=== PATIENT | male | born 1970 | race Caucasian/White ===

== ENCOUNTER 2021-08-31 00:34 | Day surgery (SDC) | payer OTHER, SELFPAY ==
[2021-08-16 12:42] VITALS: BMI 32.5
--- NOTE | 2021-08-30 09:16 | P.PNAN_ITS ---
Anes - Initial Pre Proc Eval Procedure: Operation Date: 08/31/21 07:30 Proposed Procedures p Screening Colonoscopy - Lionel Quiroz MD Date/Time: 08/30/21 09:16 Surgeon: Lionel Quiroz MD Pre Op Diagnosis: neoplasm screening Patient Data Age: 50 Gender: M Height: 1.75 m Weight: 100 kg Allergies Allergy/AdvReac Type Severity Reaction Status Date / Time lisinopril AdvReac Mild Cough Verified 08/31/21 06:17 Home Medications Medication Instructions Recorded Confirmed Type metoprolol succinate 25 mg 25 mg PO DAILY #30 tablet 05/04/21 08/16/21 Rx tablet,extended release 24 hr atorvastatin 40 mg tablet 40 mg PO DAILY #90 tablet 05/07/21 08/16/21 Rx omeprazole 40 mg capsule,delayed 40 mg PO DAILY #90 cap 05/07/21 08/16/21 Rx release losartan 100 mg tablet 100 mg PO DAILY #90 tablet 06/25/21 08/16/21 Rx Patient hx anesthesia problems: none Family hx anesthesia problems: none Results Review: All pre-operative results and documents have been reviewed as part of the pre-operative evaluation. [facility] Past Medical History Medical History (Updated 08/30/21 @ 09:17 by Teja Acosta DO) ADD (attention deficit disorder) BMI 31.0-31.9,adult GERD (gastroesophageal reflux disease) Hypertension Mixed hyperlipidemia PVC (premature ventricular contraction) Family History Family History Mother Family history of obesity Family history of diabetes mellitus in first degree relative Hypertension Family history of type 2 diabetes mellitus Other Family history of congenital heart disease Family history of dementia Family history of malignant neoplasm Social History Social History Second hand tobacco smoke exposure: No Alcohol intake: current Drinks per week: 3 Substance use: never Substance use type: does not use Living arrangements: with family Additional living arrangements comments: 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 Gender identity (if verbalized by the patient): Female Sexual Orientation (if Verbalized by the Patient): Straight or Heterosexual Spiritual care concerns: No Agree to blood products: Yes Anes - Eval Final PreProcedure Day of Procedure 08/30/21 09:16 Patient weight: obese Heart: regular rate and rhythm Lungs: clear to auscultation and normal air movement Airway: Mallampati scale class II Neurological: alert and oriented Last oral intake: >/= 8 hours ASA classification: III Emergent: no Anesthetic plan: proceed Anesthesia type and monitoring: general GIVS and standard monitoring Results Review: All pre-operative results and documents have been reviewed as part of the pre-operative evaluation. Informed Consent: The patient's anesthetic plan and its attendant risks and benefits were discussed with the patient/family/POA. Questions were solicited and answers provided to the satisfaction of the patient/family/POA.
--- NOTE | 2021-08-30 11:45 | PM.HPGS ---
History of Present Illness History of Present Illness Consent: Risks, benefits, and alternatives have been discussed and questions answered. Patient agrees to proceed with procedure. Chief complaint: neoplasm screening Narrative: Jey Joshua is a 50 year old male Referred for colon cancer screening. This is his 1st colonoscopy Review of Systems Review of Systems: All systems reviewed & are unremarkable except as noted in HPI and below PMFSH Past Medical History Medical History ADD (attention deficit disorder) BMI 31.0-31.9,adult GERD (gastroesophageal reflux disease) Hypertension Mixed hyperlipidemia PVC (premature ventricular contraction) Family History Family History Mother Family history of obesity Family history of diabetes mellitus in first degree relative Hypertension Family history of type 2 diabetes mellitus Other Family history of congenital heart disease Family history of dementia Family history of malignant neoplasm Social History Social History Second hand tobacco smoke exposure: No Alcohol intake: current Drinks per week: 3 Substance use: never Substance use type: does not use Living arrangements: with family Additional living arrangements comments: 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 Gender identity (if verbalized by the patient): Female Sexual Orientation (if Verbalized by the Patient): Straight or Heterosexual Spiritual care concerns: No Agree to blood products: Yes Meds Home Medications and Allergies Home Medications Medication Instructions Recorded Confirmed Type metoprolol succinate 25 mg 25 mg PO DAILY #30 tablet 05/04/21 08/16/21 Rx tablet,extended release 24 hr atorvastatin 40 mg tablet 40 mg PO DAILY #90 tablet 05/07/21 08/16/21 Rx omeprazole 40 mg capsule,delayed 40 mg PO DAILY #90 cap 05/07/21 08/16/21 Rx release losartan 100 mg tablet 100 mg PO DAILY #90 tablet 06/25/21 08/16/21 Rx Allergies Allergy/AdvReac Type Severity Reaction Status Date / Time lisinopril AdvReac Mild Cough Verified 08/31/21 06:17 Exam Const: General: alert Orientation/consciousness: patient oriented x3 Resp: Auscultation: clear to auscultation bilaterally Cardio: Rhythm: regular rhythm GI: GI Palp: Yes Soft to palpation and No Tenderness to palpation present (GI) Neuro: General: patient oriented x3 Assessment and Plan Assessment and plan (1) Screening for colon cancer: Code(s): Z12.11 - Encounter for screening for malignant neoplasm of colon Status: Acute Assessment and Plan: Colonoscopy with possible biopsy or polypectomy or cautery or injection of substances.
[2021-08-31 06:18] VITALS: BP 137/93; PULSE 86; RESP 16; TEMP 36.2; O2SAT 97
[2021-08-31] MEDS: LACTATED RINGERS 1,000 ML 150 ML IV CONT (06:25)
[2021-08-31 07:48] VITALS: BP 114/82; PULSE 78; RESP 15; O2SAT 96
[2021-08-31 07:58] VITALS: BP 148/84; PULSE 71; RESP 20; O2SAT 97
[2021-08-31 08:08] VITALS: BP 150/87; PULSE 64; RESP 14; O2SAT 98
== END 2021-08-31 08:17 | disposition home or self-care (01) ==
PROVIDERS: PCP Family Medicine; Visit Provider Internal Medicine Gastroenterology
PROC: 0DJD8ZZ Inspection of Lower Intestinal Tract, Via Natural or Artificial Opening Endoscopic (ICD-10-PCS; CPT 45378; principal; 2021-08-31 07:30)
DX: Z12.11 Encounter for screening for malignant neoplasm of colon (principal); K57.30 Diverticulosis of large intestine without perforation or abscess without bleeding; K63.5 Polyp of colon; K62.1 Rectal polyp; F98.8 Other specified behavioral and emotional disorders with onset usually occurring in childhood and adolescence; K21.9 Gastro-esophageal reflux disease without esophagitis; I10 Essential (primary) hypertension; E78.2 Mixed hyperlipidemia; I49.3 Ventricular premature depolarization; E66.9 Obesity, unspecified; Z68.33 Body mass index [BMI] 33.0-33.9, adult
CPT/HCPCS: 45385; 88305; J2704; J7120

== ENCOUNTER 2022-01-16 07:03 | Emergency (ER) | payer OTHER, SELFPAY ==
--- NOTE | ~2022-01-16 | XR_ITS ---
XR tibia fibula RT 2V, XR ankle RT min 3V 01/16/2022 07:23 Indication: Right leg pain and swelling Procedure: 2 views right tibia/fibula and 4 views right ankle Comparison: No prior studies for comparison. Findings: There is anatomic alignment. No fracture, subluxation or dislocation. Ankle mortise and kne e joint intact. There are soft tissue swelling lateral to the lateral malleolus. No foreign bodies. Impression: 1: No acute fracture. Reviewed, dictated and finalized at location A. Impression: 1: No acute fracture. Impression: 1: No acute fracture.
[2022-01-16 07:09] VITALS: BP 171/114; PULSE 72; RESP 16; TEMP 36.6; O2SAT 99
--- NOTE | 2022-01-16 07:15 | ED.LOWEXIN ---
HPI - Extremity Injury (Lower) General Chief Complaint: Extremity Injury, Lower Stated Complaint: right ankle pain Time Seen by Provider: 01/16/22 07:06 History of Present Illness HPI Narrative: Patient presents emergency department from home for right ankle pain. Patient states approximately 1 hour prior to arrival he was stepping down the 2 steps to go from his house to his garage when he missed a step rolling his right ankle he states since that time he had pain in the right lateral ankle with swelling. The patient has applied ice to the ankle denies taking pain medication he states the pain radiates up his right leg he denies any other trauma or injury denies any numbness or tingling Related Data Allergies Allergy/AdvReac Type Severity Reaction Status Date / Time lisinopril AdvReac Mild Cough Verified 01/16/22 07:15 Review of Systems Review of Systems: Gen.: Denies fevers or chills Musculoskeletal: See HPI Neuro: Denies numbness, tingling, weakness Skin: Denies rash Endo: Denies DM PMFSH Past Medical History Medical History ADD (attention deficit disorder) BMI 31.0-31.9,adult GERD (gastroesophageal reflux disease) Hypertension Mixed hyperlipidemia PVC (premature ventricular contraction) Family History Family History Mother Family history of obesity Family history of diabetes mellitus in first degree relative Hypertension Family history of type 2 diabetes mellitus Other Family history of congenital heart disease Family history of dementia Family history of malignant neoplasm Social History Social History Second hand tobacco smoke exposure: No Alcohol intake: current Drinks per week: 3 Substance use: never Substance use type: does not use Additional living arrangements comments: 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 Gender identity (if verbalized by the patient): Female Sexual Orientation (if Verbalized by the Patient): Straight or Heterosexual Spiritual care concerns: No Agree to blood products: Yes Exam Narrative: APPEARANCE: No acute distress, nontoxic, resting in bed Eyes: EOMI HEENT: Normocephalic, atraumatic, RESPIRATORY: No respiratory distress MUSCULOSKELETAl: Tender palpation of the right lateral ankle with swelling present no tenderness of the anterior medial ankle, no tenderness over the base of the fifth metatarsal mild tenderness over the proximal fibula dorsalis pedis pulse 2+ neurovascular intact NEURO: Awake and alert. Following commands, speech normal, no focal deficits SKIN:: Warm, dry. Normal Color no rash or lesions Course Vital Signs Vital signs: Vital Signs Temperature 98 F 01/16/22 07:09 Pulse Rate 72 01/16/22 07:09 Respiratory Rate 16 01/16/22 07:09 Blood Pressure 171/114 H 01/16/22 07:09 Pulse Oximetry 99 01/16/22 07:09 Oxygen Delivery Room Air 01/16/22 07:09 Temperature 98 F 01/16/22 07:09 Pulse Rate 72 01/16/22 07:09 Respiratory Rate 16 01/16/22 07:09 Blood Pressure 171/114 H 01/16/22 07:09 Pulse Oximetry 99 01/16/22 07:09 Oxygen Delivery Room Air 01/16/22 07:09 MDM - Extremity Injury (Lower) Imaging Data Radiologist's impression: ITS Impressions Ankle X-Ray 01/16/22 07:24 Impression: 1: No acute fracture. Tibia/Fibula X-Ray 01/16/22 07:24 Impression: 1: No acute fracture. Discharge Plan Discharge Clinical Impression: Right ankle sprain Patient Disposition: Home, Self-Care Condition: Stable Instructions: Antibiotic Form, Ankle Sprain (ED), P.R.I.C.E. Treatment (ED) Additional Instructions: Return for increasing pain numbness or tingling in extremities or any other symptoms of concern Prescriptions: New ibuprofen [IBU] 600 mg tablet 600 mg PO Q6H PRN (Re
[2022-01-16] MEDS: IBUPROFEN 600 MG TABLET PO (07:33)
[2022-01-16 08:07] VITALS: BP 150/104; PULSE 76; RESP 18; O2SAT 98
== END 2022-01-16 08:09 | disposition home or self-care (01) ==
PROVIDERS: Emergency Provider Emergency Medicine; PCP Family Medicine
DX: S93.401A Sprain of unspecified ligament of right ankle, initial encounter (principal); I10 Essential (primary) hypertension; E78.2 Mixed hyperlipidemia; K21.9 Gastro-esophageal reflux disease without esophagitis; F98.8 Other specified behavioral and emotional disorders with onset usually occurring in childhood and adolescence; X50.9XXA Other and unspecified overexertion or strenuous movements or postures, initial encounter
CPT/HCPCS: 73590; 73610; 99283; A9270

== ENCOUNTER 2024-12-31 00:11 | Day surgery (SDC) | payer OTHER, SELFPAY ==
[2024-12-22 13:21] VITALS: BMI 34.5
--- OUTSIDE RECORDS SUMMARY | 2024-12-31 00:14 | XMS_ITS | Encounter Summary ---
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 Historical Provider [facility] Final Result documented in this encounter Visit Diagnoses Not on filedocumented in this encounter Care Teams Bottom Turning Lathe Tender Relationship Specialty Start Date End Date Nilton Garcia MD PCP - General 12/13/16 documented as of this encounter
--- OUTSIDE RECORDS SUMMARY | 2024-12-31 00:14 | XMS_ITS | Referral Summary ---
Author Organization [facility] [address] Address [address] [place] [address] Care Team Providers Care Mangle Catcher Name Role Phone Nilton Garcia MD Primary Care Provider [phone] Allergies No known active allergies Medications dextroamphetami ne-amphetamine XR (ADDERALL XR) 10 mg 24 hr capsule Take 10 mg by mouth every morning. Active atorvastatin (LIPITOR) 40 mg tablet TAKE 1 TABLET BY MOUTH EVERY DAY FOR CHOLESTEROL 30 tablet 11 8 Active Active Problems Problem Noted Date Diagnosed Date Vasovagal syncope 07/15/2017 Ventricular premature beats 12/27/2016 Overview (01/10/2017): PVC's (premature ventricular contractions) Atherosclerosis of left carotid artery 7 Overview (01/10/2017): Atherosclerosis of left carotid artery Left ventricular hypertrophy 12/27/2016 Overview (01/10/2017): Left ventricular hypertrophy Left atrial enlargement 12/27/2016 Overview (01/10/2017): Left atrial enlargement Non-rheumatic tricuspid valve insufficiency 12/16 Overview (01/10/2017): Non-rheumatic tricuspid valve insufficiency Multiple-type hyperlipidemia 12/27/2016 Overview (01/10/2017): Mixed hyperlipidemia Social History Tobacco Use Types Packs/Day Years Used Date Smoking Tobacco: Never Smokeless Tobacco: Former Alcohol Use Standard Drinks/Week Comments No 0 (1 standard drink = 0.6 oz pur e alcohol) Personal Safety Answer Date Recorded Getting School Help Needed Not on file 12/11 Sex and Gender Information Value Date Recorded Sex Assigned at Not on file 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 Gender Identity Not on file Sexual Orientation Not on file Last Filed Vital Signs Vital Sign Reading Time Taken Comments Blood Pressure 112/68 07/15/2017 3:15 PM DOOR AND ARRIVAL ATTENDANT Pulse 64 07/15/2017 3:15 PM DOOR AND ARRIVAL ATTENDANT Temperature - - Respiratory Rate - - Oxygen Saturation 98% 07/15/2017 3:15 PM DOOR AND ARRIVAL ATTENDANT Inhaled Oxygen Concentration - - Weight 99.2 kg (218 lb 11.2 oz) 07/15/2017 3:15 PM DOOR AND ARRIVAL ATTENDANT Height 175.3 cm (5' 9 ) 07/15/2017 3:15 PM DOOR AND ARRIVAL ATTENDANT Body Mass Index 32.3 07/15/2017 3:15 PM DOOR AND ARRIVAL ATTENDANT Plan of Treatment Not on file Insurance [place] [employer] Care Teams Mangle Catcher Relationship Specialty Start Date End Date Nilton Garcia MD PCP - General 12/13/16
--- OUTSIDE RECORDS SUMMARY | 2024-12-31 00:14 | XMS_ITS | Clinical Summary ---
Author Organization [facility] [address] Address [address] [place] [address] Care Team Providers Care Mate Fishing Vessel Name Role Phone Nilton Garcia MD Primary Care Provider [phone] Allergies No known active allergies Medications dextroamphetami [...] Multiple-type hyperlipidemia 12/27/2016 Overview (01/10/2017): Mixed hyperlipidemia Medical History Medical History Date Comments Hx Other Medical Rhythm disturba nce Heart valve disease Valvular dis ease Hx Other Medical ADD; Comments: ELU 12/27/2016 - Family History Medical History Relation Name Comments Leukemia Father Leukemia; Cause of : Leukemia Other Mother Complications f rom non-alcoholic fatty liver disease; Cause of : Complications from non-alcoholic fatty liver disease Diabetes Other 1 Family history of Diabetes mellitus; Hyperlipidemia Other 2 Family histor y of Hyperlipidemia; Hypertension Other 3 Family history of Hypertension; Relation Name Status Comments Father (Age 71) Mother Other 1 Other 2 Other 3 Social History Tobacco Use Types Packs/Day Years Used Date Smoking Tobacco: Never Smokeless Tobacco: Former Alcohol Use Standard Drinks/Week Comments No 0 (1 standard drink = 0.6 oz pur e alcohol) Personal Safety Answer Date Recorded Getting School Help Needed Not on file 12/11 Sex and Gender Information Value Date Recorded Sex Assigned at Not on file 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 Gender Identity Not on file Sexual Orientation Not on file Obstetrics History Last Filed Vital Signs Vital Sign Reading Time Taken Comments Blood Pressure 112/68 07/15/2017 3:15 PM BLASTING MACHINE OPERATOR Pulse 64 07/15/2017 3:15 PM BLASTING MACHINE OPERATOR Temperature - - Respiratory Rate - - Oxygen Saturation 98% 07/15/2017 3:15 PM BLASTING MACHINE OPERATOR Inhaled Oxygen Concentration - - Weight 99.2 kg (218 lb 11.2 oz) 07/15/2017 3:15 PM BLASTING MACHINE OPERATOR Height 175.3 cm (5' 9 ) 07/15/2017 3:15 PM BLASTING MACHINE OPERATOR Body Mass Index 32.3 07/15/2017 3:15 PM BLASTING MACHINE OPERATOR Plan of Treatment Not on file Insurance [place] [facility] Care Teams Mate Fishing Vessel Relationship Specialty Start Date End Date Nilton Garcia MD PCP - General 12/13/16
[2024-12-31 07:10] VITALS: BP 152/99; PULSE 74; RESP 16; TEMP 35.9; O2SAT 97
[2024-12-31] MEDS: LACTATED RINGERS 1,000 ML 150 ML IV CONT (07:23)
--- NOTE | 2024-12-31 07:55 | P.HP_ITS ---
H&P: [facility] History of Present Illness Date/Time: 12/31/24 07:55 Chief Complaint: History of colon polyps Narrative: The patient has a history of colonic polyps, the last colonoscopy was 5 years ago. Review of Systems Review of Systems: All systems reviewed & are unremarkable except as noted in HPI and below PMFSH Past Medical History Medical History ADD (attention deficit disorder) Adult BMI 34.0-34.9 kg/sq m BMI 31.0-31.9,adult BMI greater than 30 GERD (gastroesophageal reflux disease) Hypertension Mixed hyperlipidemia Otitis media in diseases classified elsewhere, left ear PVC (premature ventricular contraction) Family History Family History Mother Family history of obesity Family history of diabetes mellitus in first degree relative Hypertension Family history of type 2 diabetes mellitus Father No problems noted. Sibling No problems noted. Other Family history of congenital heart disease Family history of dementia Family history of malignant neoplasm Social History Social History Smoking status: Never smoker Second hand tobacco smoke exposure: No Alcohol intake: current Drinks per week: 3 Alcohol use details: Occasionally Substance use: never Substance use type: does not use Lack of Transportation: No Lack of Food: Never True Current Housing: I Have Housing Concerned About Future Housing: No Difficulty Paying Gas/Electric Bills: No Difficulty Paying for Meds: No Currently Unemployed: No Education: High School Diploma/GED Difficulty w/ Childcare or Family Care: No Living arrangements: with family Additional living arrangements comments: 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/Education: 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 Gender identity (if verbalized by the patient): Male Sexual Orientation (if Verbalized by the Patient): Straight or Heterosexual Spiritual care concerns: No Agree to blood products: Yes Meds Home Medications and Allergies Home Medications Medication Instructions Recorded Confirmed Type losartan 100 mg tablet 100 mg PO DAILY #90 tabs 07/05/22 12/31/24 Rx metoprolol succinate 50 mg 50 mg PO DAILY #90 tabs 07/12/24 12/31/24 Rx tablet,extended release 24 hr omeprazole 40 mg capsule,delayed 40 mg PO DAILY #90 caps 12/06/24 12/31/24 Rx release atorvastatin 40 mg tablet 40 mg PO DAILY #90 tabs 12/28/24 12/31/24 Rx Allergies Allergy/AdvReac Type Severity Reaction Status Date / Time lisinopril AdvReac Mild Cough Verified 12/31/24 07:07 Vital Signs Vital Signs - 24 hr 12/31/24 07:10 Temperature 96.7 F L Pulse Rate 74 Respiratory Rate 16 Blood Pressure 152/99 H Pulse Oximetry 97 Oxygen Delivery Room Air Exam Const: General: cooperative and healthy appearing Resp: Effort & Inspection: normal respiratory effort and able to speak in complete sentences Auscultation: clear to auscultation bilaterally Cardio: Rate: regular rate Rhythm: regular rhythm GI: Inspection: normal to inspection GI Palp: No No hepatosplenomegaly present Auscultation: normal bowel sounds Rectal Exam: deferred Skin: General skin exam: normal color Psych: Appearance: grossly normal Mental Status: mental status grossly no rmal Assessment and Plan Assessment and plan (1) Screening for colon cancer: Code(s): Z12.11 - Encounter for screening for malignant neoplasm of colon Status: Acute Assessment and Plan: The patient is deemed a good candidate for the procedure. Consent signed. Will proceed.
--- NOTE | 2024-12-31 07:59 | WPDANESEPPF ---
Anes - Initial Pre Proc Eval Procedure: Operation Date: 12/31/24 08:00 Proposed Procedures p Colonoscopy - Dutch Patricia MD Date/Time: 12/31/24 07:59 Surgeon: Dutch Patricia MD Pre Op Diagnosis: hx of colon polyps Patient Data Age: 54 Gender: M Height: 1.75 m Weight: 107.3 kg Last Vital Signs Temp 35.9 C L 12/31/24 07:10 Pulse 74 12/31/24 07:10 Resp 16 12/31/24 07:10 BP 152/99 H 12/31/24 07:10 Pulse Ox 97 12/31/24 07:10 O2 Del Method Room Air 12/31/24 07:10 Allergies Allergy/AdvReac Type Severity Reaction Status Date / Time lisinopril AdvReac Mild Cough Verified 12/31/24 07:07 Home Medications Medication Instructions Recorded Confirmed Type losartan 100 mg tablet 100 mg PO DAILY #90 tabs 07/05/22 12/31/24 Rx metoprolol succinate 50 mg 50 mg PO DAILY #90 tabs 07/12/24 12/31/24 Rx tablet,extended release 24 hr omeprazole 40 mg capsule,delayed 40 mg PO DAILY #90 caps 12/06/24 12/31/24 Rx release atorvastatin 40 mg tablet 40 mg PO DAILY #90 tabs 12/28/24 12/31/24 Rx Patient hx anesthesia problems: none Family hx anesthesia problems: none Results Review: All pre-operative results and documents have been reviewed as part of the pre-operative evaluation. [facility] Past Medical History Medical History Otitis media in diseases classified elsewhere, left ear Adult BMI 34.0-34.9 kg/sq m BMI greater than 30 GERD (gastroesophageal reflux disease) Hypertension BMI 31.0-31.9,adult ADD (attention deficit disorder) Mixed hyperlipidemia PVC (premature ventricular contraction) Family History Family History Mother Family history of obesity Family history of diabetes mellitus in first degree relative Hypertension Family history of type 2 diabetes mellitus Father No problems noted. Sibling No problems noted. Other Family history of congenital heart disease Family history of dementia Family history of malignant neoplasm Social History Social History Smoking status: Never smoker Second hand tobacco smoke exposure: No Alcohol intake: current Drinks per week: 3 Alcohol use details: Occasionally Substance use: never Substance use type: does not use Lack of Transportation: No Lack of Food: Never True Current Housing: I Have Housing Concerned About Future Housing: No Difficulty Paying Gas/Electric Bills: No Difficulty Paying for Meds: No Currently Unemployed: No Education: High School Diploma/GED Difficulty w/ Childcare or Family Care: No Living arrangements: with family Additional living arrangements comments: 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/Education: 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 Gender identity (if verbalized by the patient): Male Sexual Orientation (if Verbalized by the Patient): Straight or Heterosexual Spiritual care concerns: No Agree to blood products: Yes Anes - Eval Final PreProcedure Day of Procedure 12/31/24 07:59 Patient weight: obese Heart: regular rate and rhythm Lungs: clear to auscultation Airway: Mallampati scale class II Neurological: alert and oriented Last oral intake: >/= 8 hours ASA classification: III Emergent: no Anesthetic plan: proceed Anesthesia type and monitoring: general GIVS and standard monitoring Results Review: All pre-operative results and documents have been reviewed as part of the pre-operative evaluation. Informed Consent: The patient's anesthetic plan and its attendant risks and benefits were discussed with the patient/family/POA. Questions were solicited and answers provided to the satisfaction of the patient/family/POA.
[2024-12-31 08:24] VITALS: BP 126/80; PULSE 68; RESP 18; O2SAT 95
[2024-12-31 08:34] VITALS: BP 120/85; PULSE 67; RESP 18; O2SAT 99
[2024-12-31 08:44] VITALS: BP 134/94; PULSE 64; RESP 18; O2SAT 97
== END 2024-12-31 08:49 | disposition home or self-care (01) ==
PROVIDERS: PCP Family Medicine; Referring Provider Internal Medicine Gastroenterology; Visit Provider Internal Medicine Gastroenterology
PROC: 0DJD8ZZ Inspection of Lower Intestinal Tract, Via Natural or Artificial Opening Endoscopic (ICD-10-PCS; CPT 45378; principal; 2024-12-31 08:00)
DX: Z12.11 Encounter for screening for malignant neoplasm of colon (principal); K64.8 Other hemorrhoids; Z86.0100 Personal history of colon polyps, unspecified; E66.9 Obesity, unspecified; Z68.34 Body mass index [BMI] 34.0-34.9, adult
CPT/HCPCS: 45378; J2003; J2704; J7120